=== PATIENT | female | born 1985 | race Caucasian/White ===

== ENCOUNTER 2019-10-21 19:27 | Emergency (ER) | payer OTHER ==
[2019-10-21] MEDS ORDERED: KETOROLAC 30 MG/ML 1 ML VIAL IVP STA (19:37)
--- NOTE | 2019-10-21 19:39 | ED ---
General Adult HPI - General Source: EMS, RN notes reviewed, old records reviewed Mode of arrival: EMS Limitations: no limitations <Yayo Beckett - Last Filed: 10/21/19 22:51> <Sandhya Houston - Last Filed: 10/30/19 00:19> - General Chief complaint: Extremity Injury, Lower Stated complaint: Right ankle injury Time Seen by Provider: 10/21/19 19:29 - History of Present Illness Initial comments: 34-year-old female patient presents to ED for chief complaint of right ankle injury. Patient reports that she was walking at standing height when she believes that her foot got caught between 2 cinder blocks and she suffered what appears to be an inversion injury. Patient was that she is complaining of diffuse ankle pain. Pt reports that she felt her ankle crunch. Also reports that she has pain in her tibia-fibula region as well. She reports she does have some pain in the distal femur as well. Denies hitting her head. Denies chance of being secondary tubal ligation. Denies any other injury. Denies any trauma to head or neck. Patient called EMS after injury. Denies any other complaints. (Yayo Beckett) - Related Data Home Medications Medication Instructions Recorded Confirmed Albuterol Inhaler (Mhu) [Ventolin 1 - 2 puff INHALATION Q6HR PRN 08/14/14 08/21/14 Inhaler] Calcium Carbonate [Tums] 500 mg PO TID PRN 08/14/14 08/21/14 [place] Vitamins 2 tab PO DAILY 08/14/14 08/21/14 Levothyroxine Sodium [Synthroid] 137 mcg PO DAILY 08/14/14 08/21/14 Loratadine [Claritin] 10 mg PO DAILY 08/14/14 08/21/14 Previous Rx's Medication Instructions Recorded HYDROcodone/APAP 5-325MG [[place] 2 each PO Q4HR PRN #30 tab 08/24/14 5-325] Hydrocodone/Acetaminophen [[place] 1 each PO Q6HR PRN 3 Days #12 tab 10/21/19 5-325] Allergies Allergy/AdvReac Type Severity Reaction Status Date / Time No Known Allergies Allergy Verified 10/21/19 19:37 Review of Systems ROS Other: All systems not noted in ROS Statement are negative. <Yayo Beckett - Last Filed: 10/21/19 22:51> ROS Other: All systems not noted in ROS Statement are negative. <Sandhya Houston - Last Filed: 10/30/19 00:19> ROS Statement: Those systems with pertinent positive or pertinent negative responses have been documented in the HPI. Past Medical History Past Medical History: Asthma, GERD/Reflux, Thyroid Disorder Additional Past Medical History / Comment(s): heart murmur years ago, normal now History of Any Multi-Drug Resistant Organisms: None Reported Past Surgical History: Adenoidectomy, Section, Tonsillectomy Additional Past Surgical History / Comment(s): widom teeth extractions Past Anesthesia/Blood Transfusion Reactions: No Reported Reaction Past Psychological History: No Psychological Hx Reported Smoking Status: Never smoker Past Alcohol Use History: Occasional Past Drug Use History: None Reported <Yayo Beckett - Last Filed: 10/21/19 22:51> General Exam Limitations: no limitations <aYyo Beckett - Last Filed: 10/21/19 22:51> - General Exam Comments Initial Comments: Constitutional: NAD, AOX3, Pt has pleasant affect. HEENT: NC/AT, trachea midline, neck supple, no lymphadenopathy. Posterior pharynx non erythematous, without exudates. External ears appear normal, without discharge. Mucous membranes moist. Eyes PERRLA, EOM intact. There is no scleral icterus. No pallor noted. Cardiopulmonary: RRR, no murmurs, rubs or gallops, no JVD noted. Lungs CTAB in anterior and posterior montez. No peripheral edema. Abdominal exam: Abdomen soft and non-distended. Abdomen non-tender to palpation in all 4 quadrants. Bowel sounds active in LLQ. No hepatosplenomegaly. No ecchymosis Neuro: CN II-XII grossly intact. No nuchal rigidity. No raccon eyes, no james sign, no hemotympanum. No cervical spinal tenderness. MSK: Ankle joint is diffusely tenderness. Neurovascularly intact. Posterior tibialis, dorsalis pedis pulses +2. Consistent with dislocation. Reduction of ankle dislocation was performed, neurovascularly intact after reduction and splint placement. (Yayo Beckett) Course Vital Signs 10/21/19 10/21/19 10/21/19 19:33 20:25 20:30 Temperature 98 F Pulse Rate 75 68 68 Respiratory 18 18 16 Rate Blood Pressure 124/71 129/78 128/55 O2 Sat by Pulse 100 100 100 Oximetry 10/21/19 10/21/19 10/21/19 20:35 20:40 20:45 Temperature Pulse Rate 69 65 76 Respiratory 18 18 18 Rate Blood Pressure 114/94 126/77 133/81 O2 Sat by Pulse 100 100 100 Oximetry 10/21/19 10/21/19 10/21/19 20:55 21:05 21:20 Temperature Pulse Rate 81 72 75 Respiratory 18 18 18 Rate Blood Pressure 125/80 129/92 125/81 O2 Sat by Pulse 100 100 100 Oximetry 10/21/19 10/21/19 10/21/19 21:35 21:50 22:05 Temperature Pulse Rate 70 64 65 Respiratory 18 18 18 Rate Blood Pressure 129/53 128/77 127/65 O2 Sat by Pulse 100 98 99 Oximetry 10/21/19 10/21/19 10/21/19 22:20 22:35 22:50 Temperature 98.7 F Pulse Rate 66 66 74 Respiratory 16 16 18 Rate Blood Pressure 131/70 124/67 132/64 O2 Sat by Pulse 99 100 98 Oximetry Procedures - Procedural Sedation Procedural Sedation Start Time: 20:24 Procedural Sedation Stop Time: 20:45 Indications: fracture/dislocation reduction ASA Class: I Mallampati Airway Score: 1 Time of Last PO Intake: 15:00 Preparation: lunchroom monitor applied, pulse oximeter, capnometry used, supplemental O2 applied, suction/airway equipment at bedside, IV secured IV Propofol Dose (mgs): 120 Complications: none Patient Tolerated Procedure: well, no complications <Sandhya Houston - Last Filed: 10/30/19 00:19> Medical Decision Making <Yayo Beckett - Last Filed: 10/21/19 22:51> <Sandhya Houston - Last Filed: 10/30/19 00:19> - Medical Decision Making 34-year-old female patient presents to ED for chief complaint of right ankle injury. Patient reports that she was walking at standing height when she believes that her foot got caught between 2 cinder blocks and she suffered what appears to be an inversion injury. Patient was that she is complaining of diffuse ankle pain. Pt reports that she felt her ankle crunch. Also reports that she has pain in her tibia-fibula region as well. She reports she does have some pain in the distal femur as well. Denies hitting her head. Denies chance of being secondary tubal ligation. Denies any other injury. Denies any trauma to head or neck. Patient called EMS after injury. Denies any other complaints. Patient vital signs are stable, afebrile. His exam displayed: Ankle joint is diffusely tenderness. Neurovascularly intact. Posterior tibialis, dorsalis pedis pulses +2. Consistent with dislocation. Reduction of ankle dislocation was performed, neurovascularly intact after reduction and splint placement. Plain films were obtained. Femur was obtained this did not display any acute process. Plain film of tibia-fibula and foot displayed a posterior fracture dislocation of the ankle joint. Moderate sedation was performed as well as reduction. Neurovascularly intact before and after procedure. Repeat film split anatomic reduction of the bimalleolar posterior fracture dislocation of the ankle. Patient was placed in a long posterior leg splint. Case discussed with on-call orthopetic Sohail Munguia PA-C, he discussed this case with his attending provider who was not comfortable with managing the case however they then made a call [facility] who is comfortable managing the patient. He did request a CAT scan of the ankle. This was obtained. This does displayed a comminuted trimalleolar fracture of the ankle. Minimal displacement of the fragments. There has been anatomic reduction ankle joint compared to initial exam. Soft tissue swelling. Patient will be discharged will follow up with Dr. Briceno in the office. Dr. Briceno was perfect served and states that he reviewed the images. Pt is a0x3. Will use crutches, bear weight and right lower extremity and will return to ER if condition worsens in any way. Case discussed in depth with Dr. Houston. (Yayo Beckett) I was available for consultation in the emergency department. The history and physical exam were done by the midlevel provider. I was consulted for this patients care. I reviewed the case with the midlevel provider and based on their presentation of the patient, I agree with the assessment, medical decision making and plan of care as documented. I performed the procedural sedation of the patient. She returned to her baseline level of awakeness and neurologic function prior to discharge. Chart was dictated using [employer] dictation software. Attempts were made to correct any dictation errors however some typographical errors may persist. Patient was seen during a national state of emergency due to the Covid-19 pandemic. (Sandhya Houston) Disposition Is patient prescribed a controlled substance at d/c from ED?: Yes When asked, does pt state using other controlled substances?: No If prescribed controlled substance>3 days was MAPS reviewed?: Prescribed <3 Days If opioid is for acute pain is fill amount 7 days or less?: Yes If Rx opioid, was Start Talking consent form obtained?: Yes <Yayo Beckett - Last Filed: 10/21/19 22:51> <Sandhya Houston - Last Filed: 10/30/19 00:19> Clinical Impression: Ankle dislocation, Trimalleolar fracture Disposition: HOME SELF-CARE Condition: Stable Instructions (If sedation given, give patient instructions): Ankle Fracture (ED), Moderate Sedation (ED), Ankle Dislocation (ED) Additional Instructions: Continue to wear leg splint. Use crutches do not bear weight on right lower extremity. May use pain medication as needed every 6 hours. Follow-up orthopedic consult tomorrow. Return to ER if condition worsens in any way. Prescriptions: Hydrocodone/Acetaminophen [[place] 5-325] 1 each PO Q6HR PRN 3 Days #12 tab PRN Reason: Pain Referrals: Marci Monteiro MD [Primary Care Provider] - 1-2 days Andrzej Briceno MD [Medical Doctor] - 1-2 days
--- NOTE | 2019-10-21 20:00 | XR ---
EXAMINATION TYPE: XR femur RT DATE OF EXAM: 10/21/2019 COMPARISON: NONE HISTORY: Pain TECHNIQUE: 4 views FINDINGS: Hip joint is intact. Knee joint appears intact. There is no sign of knee joint effusion. Th ere is no evidence of a fracture. Acetabulum appears normal. IMPRESSION: Normal right femur.
--- NOTE | 2019-10-21 20:02 | XR ---
EXAMINATION TYPE: XR tibia fibula RT DATE OF EXAM: 10/21/2019 COMPARISON: NONE HISTORY: Pain. Injury. TECHNIQUE: 4 views FINDINGS: There is posterior dislocation of the talus. There is a 2 x 1 cm large chip fracture of the posterior malleolus. There is probably a fracture of the distal fibula. IMPRESSION: Posterior fracture dislocation of the ankle joint. Possible fibula fracture.
--- NOTE | 2019-10-21 20:04 | XR ---
EXAMINATION TYPE: XR foot limited RT DATE OF EXAM: 10/21/2019 COMPARISON: NONE HISTORY: Pain. Twisted ankle. TECHNIQUE: 2 views FINDINGS: Metatarsals are intact. The toes appear intact. Tarsal bones are intact. There is posterior fracture dislocation of the ankle joint. There is probably an oblique fracture of the distal fibula. There is large chip fracture of the posterior malleolus. IMPRESSION: Posterior fracture dislocation of the ankle joint. Oblique ankle x-ray exam would be help ful to confirm fibula fracture.
[2019-10-21] MEDS ORDERED: PROPOFOL 10 MG/ML 20 ML VIAL IV ONE ×2 (20:05→20:30)
[2019-10-21] MEDS ORDERED: HYDROmorphone 0.5 MG/0.5 ML SYRINGE IVP STA (20:38)
--- NOTE | 2019-10-21 20:45 | XR ---
EXAMINATION TYPE: XR ankle limited RT DATE OF EXAM: 10/21/2019 COMPARISON: Today HISTORY: Post reduction TECHNIQUE: 2 views FINDINGS: There is anatomic reduction of the ankle joint. There is large nondisplaced chip fracture o f the posterior malleolus. There is nondisplaced oblique fracture distal fibula. There is soft tissue swelling over the lateral malleolus. IMPRESSION: Anatomic reduction of the bimalleolar posterior fracture dislocation of the ankle joint.
--- NOTE | 2019-10-21 21:33 | CT ---
CT scan of the right ankle. History fracture. Comparison none. FINDINGS: Images were obtained from the lower tibia to the bottom of the calcaneus without contrast. There is oblique fracture of the distal shaft of the fibula. There is separation of the fragments up to 5 mm. There is a 10 x 24 mm intra-articular chip fracture of the posterior malleolus. Fragment is displaced posteriorly up to 5 mm. The ankle mortise shows some widening on the lateral aspect. The po sterior malleolus fracture extends into the medial malleolus. Posterior fracture is comminuted. This should be considered as a trimalleolar type fracture of the ankle. The distal tibia articulates with the talus. There is no subluxation. The talus is intact. Calcaneus is intact. There is soft tissue sw elling around the ankle joint. Navicular appears normal. Cuboidal bone appears normal. The cuneiform bones appear normal. There is normal appearance of the proximal metatarsals. IMPRESSION: There is comminuted trimalleolar fracture of the ankle. Minimal displacement of the fragments. There is been anatomic reduction of the ankle joint compared to initial exam. Soft tissue swelling.
[2019-10-21] MEDS ORDERED: ACET/COD 300 MG/30 MG STARTER PACK 6 TAB BTL PO STA (22:28)
[2019-10-21 22:54] VITALS: BP 132/64; PULSE 74; RESP 18; TEMP 98.7
--- NOTE | 2019-10-21 23:31 | ED ---
Disposition Clinical Impression: Ankle dislocation, Trimalleolar fracture Disposition: HOME SELF-CARE Condition: Stable Instructions (If sedation given, give patient instructions): Ankle Fracture (ED), Moderate Sedation (ED), Ankle Dislocation (ED) Additional Instructions: Continue to wear leg splint. Use crutches do not bear weight on right lower extremity. May use pain medication as needed every 6 hours. Follow-up orthopedic consult tomorrow. Return to ER if condition worsens in any way. Prescriptions: Hydrocodone/Acetaminophen [[place] 5-325] 1 each PO Q6HR PRN 3 Days #12 tab PRN Reason: Pain Is patient prescribed a controlled substance at d/c from ED?: No Referrals: Marci Monteiro MD [Primary Care Provider] - 1-2 days Andrzej Briceno MD [Medical Doctor] - 1-2 days Procedures - [place] Protocol (Time Out) Procedure Performed:: moderate sedation and reduction of right ankle Performing Provider: Sandhya Houston Nurse: Adriana Mckoy Respiratory Therapist: Clarisa Jalloh Patient Identification (2 identifiers required): Chart, Verbal, Arm Band, Name - Orthopedic Joint Reduction Joint #1 Consent Obtained: verbal consent, written consent Side: right Joint Reduction Location: ankle Analgesia: procedural sedation Technique Used: traction/counter-traction Post-Reduction Neuro Exam: intact Post-Reduction Vascular Exam: intact Post Reduction X-Ray Obtained: Yes (anatomic reduction) Splint Applied: Yes (long posterior leg ) Patient Tolerated Procedure: well
--- NOTE | 2019-10-23 06:55 | CDI ---
See below , Dear Ceslo nobles , please do addendum fo moderate sedation start and stop time , not mention in ER notes . Thank you , ADELA
== END 2019-10-21 22:54 | disposition home or self-care (01) ==
LOC: EC 19:27
DX: S82.851A Displaced trimalleolar fracture of right lower leg, initial encounter for closed fracture (principal); J45.909 Unspecified asthma, uncomplicated; E07.9 Disorder of thyroid, unspecified; Z79.51 Long term (current) use of inhaled steroids; W22.8XXA Striking against or struck by other objects, initial encounter; Y93.01 Activity, walking, marching and hiking
CPT/HCPCS: 99284; 96374; 96375; 27818; 99152; 73552; 73590; 73600; 73620; 73700; J1885; J2704; J1170

== ENCOUNTER 2019-11-02 14:50 | Day surgery (SDC) | payer OTHER ==
[2019-10-31 16:55] VITALS: BMI 28.1
[~2019-11-02 14:50] MED LIST: DEXAMETHASONE SOD PHOSPHATE 10 MG/ML 1 ML VIAL IV ONE; HYDROmorphone 0.5 MG/0.5 ML SYRINGE IVP PRN; LACTATED RINGERS 1,000 ML IV SCH; MIDAZOLAM 2 MG/2 ML VIAL IV PRN; ONDANSETRON 4 MG/2 ML VIAL IVP ONE; ONDANSETRON 4 MG/2 ML VIAL ONE
[2019-11-02] MEDS ORDERED: SCOPOLAMINE 1.5MG/72HR PATCH TRANSDERM ONE (16:00)
--- NOTE | 2019-11-02 16:09 | P.ANPRN ---
Procedure Note - Anesthesia - Nerve Block Performed Right Adductor Canal Single Time Out Performed: Yes Date of Procedure: 11/02/19 Procedure Start Time: 15:43 Procedure Stop Time: 15:50 Location of Patient: PreOp Indication: Acute Post-Operative Pain, Requested by Surgeon Sedation Type: Sedate with meaningful contact maintained Preparation: Sterile Prep, Sterile Dressing Position: Supine Catheter: None Needle Types: Pajunk Needle Gauge: 20 Ultrasound used to visualize needle placement: Yes Ultrasound used to observe medication spread: Yes Injectate: 0.5% Ropivacaine (see comment for volume) (10 ml + decadron 1 mg) Blood Aspirated: No Pain Paresthesia on Injection Noted: No Resistance on Injection: Normal Right Popliteal Single Date of Procedure: 11/02/19 Procedure Start Time: 15:51 Procedure Stop Time: 15:59 Location of Patient: PreOp Indication: Acute Post-Operative Pain, Requested by Surgeon Sedation Type: Sedate with meaningful contact maintained Preparation: Sterile Prep, Sterile Dressing Position: Supine Catheter: None Needle Types: Pajunk Needle Gauge: 20 Ultrasound used to visualize needle placement: Yes Ultrasound used to observe medication spread: Yes Injectate: 0.5% Ropivacaine (see comment for volume) (Ropivacaine 0.5% + decadron 3 mg) Blood Aspirated: No Pain Paresthesia on Injection Noted: No Resistance on Injection: Normal Image Stored and Saved: Yes Events: Uneventful and Well Tolerated
[2019-11-02] MEDS ORDERED: ROPIVACAINE 5 MG/ML 30 ML VIAL ONE (16:18)
[2019-11-02] MEDS ORDERED: MIDAZOLAM 2 MG/2 ML VIAL ONE (16:18)
[2019-11-02] MEDS ORDERED: DEXAMETHASONE SOD PHOSPHATE 4 MG/ML 1 ML VIAL ONE (16:18)
[2019-11-02] MEDS ORDERED: fentaNYL (PF) 50 MCG/ML 2 ML AMP ONE (16:18)
[2019-11-02] MEDS ORDERED: PROPOFOL 10 MG/ML 20 ML VIAL IV ONE (16:18)
[2019-11-02] MEDS ORDERED: PHENYLEPHRINE-0.9% NACL SYG 1 MG/10 ML SYRINGE ONE (16:18)
[2019-11-02] MEDS ORDERED: LIDOCAINE 1% INJ 10MG/ML (20 ML MDV) ONE (16:18)
--- NOTE | 2019-11-02 18:19 | P.OP ---
Date of Procedure: 11/02/19 Preoperative Diagnosis: Displaced right trimalleolar variant ankle fracture (lateral malleolus, posterolateral posterior malleolus, and postero-medial posterior malleolus fracture fragments) Postoperative Diagnosis: Same Procedure(s) Performed: 1. Open reduction and internal fixation of right lateral and posterior malleolus fractures 2. Manual external rotation stress x-ray by physician, right ankle 3. Application of short leg splint by physician, right ankle Anesthesia: CHANA, regional Surgeon: Andrzej Briceno Mortgage Loan Officer #1: Zenia Reeves Estimated Blood Loss (ml): 10 IV fluids (ml): 1,200 Pathology: none sent Condition: stable Disposition: PACU Indications for Procedure: The patient is a very pleasant 34-year-old female who sustained a right ankle fracture dislocation little over a week ago. She was seen in emergency department where a closed reduction was performed all by application of a splint. She followed up in my office. Her x-rays and computed tomography scan showed a grossly unstable trimalleolar variant ankle fracture. I discussed the need for operative stabilization. We discussed the potential risks and Locations of surgery including but certainly not limited to risk of anesthesia, infection, delayed wound healing, damage to local blood vessels or nerves including the sural nerve, fracture nonunion, fracture malunion, posttraumatic arthritis, hardware failure, disruption of the ankle mortise or syndesmosis, DVT, PE, other medical complications, and inability to regain preinjury level of function, and possibly loss of life or limb. The patient voiced her understanding that we'll these are the most common complications other less common complications are possible. She provided her verbal and written consent to go forward with surgery. Description of Procedure: The patient was identified in preoperative holding and the correct right leg was marked with my initials. I reviewed the consent form with the patient and her . All of their questions were answered. The patient was given a block by anesthesia. She was then brought back to the operating room. She was positioned on the OR table where general anesthetic and preoperative antibiotics were given. A tourniquet was applied to the proximal aspect of the right leg. The patient was then positioned in the lateral decubitus position with the right leg up. She was secured to the table with a beanbag. The left leg was scissored anteriorly and padded. The right leg was propped up on a bone foam ramp to facilitate imaging. The right leg was then prepped and draped in the standard sterile fashion. Prior to starting surgery timeout was performed identifying the correct patient, operative extremity, and procedure. The patient's leg was then elevated, exsanguinated with an Esmarch bandage, and the tourniquet was inflated to 250 mmHg. I began by outlining a posterior lateral approach to the ankle. An incision was marked out midway between the posterior border of the fibula and the Achilles tendon. Skin incision was made with a scalpel and dissection was carried down carefully through the subcutaneous tissue with tenotomy scissors. The fascia over the peroneal muscles was incised longitudinally in line with the skin incision. I then bluntly developed the interval between the peroneal muscles and the FHL. The FHL muscle belly was swept off the posterior tibia. The apex of the posterior lateral fracture fragment was identified. The periosteum was teed off the posterior tibia. I was able to corrales in the posterior malleolus fragment. It was held reduced with a 625 K wire. Reduction was verified with fluoroscopy. I then placed a precontoured posterior malleolus plate and centered it on orthogonal views. Nonlocking 3.5 mm screws were placed proximally and nonlocking 3.5 mm lag screws were placed distally generating excellent compression of the fracture fragments. I then dissected anteriorly to the peroneal tendons and identified the posterior lateral border of the fibula. The fracture site was identified in the distal fragment spike was keyed into the proximal shaft and held with a small [id number] reduction clamp. Reduction was verified with fluoroscopy. I then contoured a one third tubular plate as a posterior lateral antiglide construct. 2 nonlocking 3.5 were placed proximal to the fracture and a bicortical nonlocking 3.5 mm screw was placed in the most distal hole of the plate. A nonlocking 2.7 mm lag screw was placed through the plate generating excellent compression. At this point the wound was thoroughly irrigated and closed in layers with 2-0 Vicryl for the fascial layer over the peroneal musculature, a 3-0 Monocryl the deep subcu, and 3-0 nylon for the skin. The beanbag was deflated and a true mortise view was taken of the ankle. There was very little step-off of the posteromedial posterior malleolus fracture site elected to treat it nonoperatively. The ankle mortise was anatomic. There was no widening of the medial clear space or incisura with a manual external rotation stress x-ray. A lateral x-ray of the ankle showed the talus centered under the tibial plafond. A sterile dressing was applied followed by a well- padded [place] splint with the ankle at neutral. The patient was then awoken from her anesthetic and transferred to a [place]. She was brought to recovery having tolerated the procedure well. Plan: The patient is going to remain strictly nonweightbearing on her right leg. She is going to discharge home as an outpatient. She'll follow-up in 2 weeks for splint removal, nonweightbearing x-rays of the ankle, and a wound check. She is going to be discharged home on [place], Zofran, and aspirin for DVT prophylaxis
[2019-11-02 18:56] VITALS: TEMP 97.3
[2019-11-02] MEDS ORDERED: ONDANSETRON 4 MG/2 ML VIAL ONE (19:22)
[2019-11-02] MEDS ORDERED: ONDANSETRON 4 MG/2 ML VIAL IVP ONE (19:22)
[2019-11-02 19:30] VITALS: RESP 20
[2019-11-02 19:36] VITALS: BP 113/72; PULSE 70
--- NOTE | 2019-11-02 22:05 | XR ---
EXAMINATION TYPE: XR ankle complete RT DATE OF EXAM: 11/02/2019 COMPARISON: 10/21/2019 HISTORY: Trimalleolar fracture surgery. TECHNIQUE: 4 views FINDINGS: Fluoroscopic images were obtained and show placement of plates and screws fixing the hand sewer ior malleolus and the lateral malleolus in anatomic position. IMPRESSION: No, getting process seen.
--- NOTE | 2019-11-03 10:49 | FL ---
EXAMINATION TYPE: FL guidance operating room DATE OF EXAM: 11/02/2019 HISTORY: Fluoroscopy time 28 seconds of fluoroscopy provided. IMPRESSION: 1. Fluoroscopy time.
== END 2019-11-02 19:52 | disposition home or self-care (01) ==
LOC: OR 14:50
PROVIDERS: ATTEND Orthopaedic Surgery
DX: S82.851A Displaced trimalleolar fracture of right lower leg, initial encounter for closed fracture (principal); R01.1 Cardiac murmur, unspecified; I51.9 Heart disease, unspecified; E03.9 Hypothyroidism, unspecified; J45.909 Unspecified asthma, uncomplicated; Z97.3 Presence of spectacles and contact lenses; Z79.899 Other long term (current) drug therapy; Z79.891 Long term (current) use of opiate analgesic; Z79.890 Hormone replacement therapy; Z98.890 Other specified postprocedural states; Z91.09 Other allergy status, other than to drugs and biological substances; Z91.89 Other specified personal risk factors, not elsewhere classified; Z83.3 Family history of diabetes mellitus; Z82.49 Family history of ischemic heart disease and other diseases of the circulatory system; W18.43XA Slipping, tripping and stumbling without falling due to stepping from one level to another, initial encounter; X50.1XXA Overexertion from prolonged static or awkward postures, initial encounter; Y93.01 Activity, walking, marching and hiking
CPT/HCPCS: 27814; 64447; 64450; 76942; 84703; 73610; C1713 ×2; J2250; J1100 ×2; J0690; J2405; J2001; J3010; J2795; J2370; J2704; 64445

== ENCOUNTER → 2021-09-19 | Outpatient (CLI) | payer BC, OTHER | END | disposition home or self-care (01) | LOC: LABWHC1 13:39 | PROVIDERS: ATTEND Obstetrics & Gynecology | DX: N92.5 Other specified irregular menstruation (principal) | CPT/HCPCS: 36415; 84702 ==

== ENCOUNTER → 2021-10-20 | Outpatient (CLI) | payer BC, OTHER ==
--- NOTE | 2021-10-20 10:01 | US ---
EXAMINATION TYPE: US pelvic complete DATE OF EXAM: 10/20/2021 COMPARISON: NONE CLINICAL HISTORY: N83.201 UNSPECIFIED OVARIAN CYST, RIGHT SIDE. TECHNIQUE: Transabdominal (TA). Date of LMP: 09-19-21 EXAM MEASUREMENTS: Uterus: 9.7 x 3.9 x 4.5 cm Endometrial Stripe: 0.6 cm Right Ovary: 3.4 x 2.1 x 1.7 cm Left Ovary: 3.4 x 1.6 x 1.6 cm 1. Uterus: Anteverted wnl 2. Endometrium: wnl 3. Right Ovary: wnl 4. Left Ovary: wnl 5. Bilateral Adnexa: wnl 6. Posterior cul-de-sac: wnl IMPRESSION: Examination is Within normal limits
== END | disposition home or self-care (01) ==
LOC: RADUSWWP 09:24
PROVIDERS: ATTEND Obstetrics & Gynecology
DX: N83.201 Unspecified ovarian cyst, right side (principal)
CPT/HCPCS: 76856

== ENCOUNTER → 2023-02-15 | Outpatient (CLI) | payer BC, OTHER ==
--- NOTE | 2023-02-15 08:47 | MM ---
Reason for Exam: Screening (asymptomatic). Baseline mammogram. Patient History: Menarche at age 14. First Full-Term at age 27. Premenopausal. Patient has history of breast feeding. Last menstrual period: 02/13/2023 Risk Values: Na 5 year model risk: 0.4%. NCI Lifetime model risk: 11.2%. Prior Study Comparison: Patient's first Mammogram. Tissue Density: The breast tissue is heterogeneously dense. This may lower the sensitivity of mammography. Findings: Analyzed By CAD. There is no suspicious group of microcalcifications or new suspicious mass. Overall Assessment: Negative, BI-RAD 1 Management: Screening Mammogram of both breasts in [address] [facility] will attempt to contact patient to return for supplemental views and ultrasound if indicated. Patient should continue monthly self-breast exams. A clinical breast exam by your physician is recommended on an annual basis. This exam should not preclude additional follow-up of suspicious palpable abnormalities. Note on Na scores and lifetime risk: 1. A Na score greater than 3% is considered moderate risk. If this is the case, consider specialist referral to assess eligibility for a risk reducing agent. 2. If overall lifetime risk for the development of breast cancer is 20% or higher, the patient may qualify for future screening with alternating mammogram and breast MRI. Electronically signed and approved by: Juvenal Khan DO
== END | disposition home or self-care (01) ==
LOC: RADMAMWWP 08:09
PROVIDERS: ATTEND Obstetrics & Gynecology
DX: Z12.31 Encounter for screening mammogram for malignant neoplasm of breast (principal)
CPT/HCPCS: 77063; 77067